=== PATIENT | female | born 1990 | race American Indian/Alaskan Native ===

== ENCOUNTER 2016-09-25 08:49 | Emergency (ER) | payer OTHER | END 2016-09-25 12:11 | disposition home or self-care (01) | LOC: ED 08:49 | DX: M54.2 Cervicalgia (principal); M54.9 Dorsalgia, unspecified; M79.603 Pain in arm, unspecified | CPT/HCPCS: 99281 ==

== ENCOUNTER 2017-12-11 08:33 | Outpatient (CLI) | payer BC ==
--- NOTE | 2017-12-11 10:09 | Ultrasound Report ---
ULTRASOUND THYROID SCAN History: Nontoxic goiter. Findings: The right lobe measures 4.3 x 1.3 x 1.5 cm. The left lobe measures 4.0 x 1.2 x 1.5 cm. The isthmus measures 0.3 cm. The thyroid gland is normal size, contour and echotexture. No mass or cyst is identified. Impression: Normal thyroid.
== END 2017-12-11 08:34 | disposition home or self-care (01) ==
LOC: US 08:33
PROVIDERS: ATTEND Obstetrics & Gynecology
DX: E04.9 Nontoxic goiter, unspecified (principal)
CPT/HCPCS: 76536